=== PATIENT | female | born 2000 | race Caucasian/White ===

== ENCOUNTER 2024-03-23 09:10 | Outpatient (CLI) | payer OTHER, SELFPAY ==
[2024-03-23 18:50] LABS: Cholesterol 157 mg/dL (0-200); HDL Direct 100 mg/dL; Triglycerides 85 mg/dL (<150)
[2024-03-23 19:01] LABS: LDL Cholesterol Direct 44 mg/dL
== END 2024-03-23 09:11 | disposition home or self-care (01) ==
LOC: ANHBWCLAB 09:12
PROVIDERS: PCP Nurse Practitioner Adult Health; Visit Provider Nurse Practitioner Adult Health
DX: Z13.9 Encounter for screening, unspecified (principal)
CPT/HCPCS: 36415; 80061; 84443

== ENCOUNTER 2024-05-26 11:50 | Outpatient (CLI) | payer OTHER, SELFPAY ==
[2024-05-26 19:13] LABS: Add Urine Microscopic? YES; Appearance Urine Turbid (Clear); Bacteria Urine Rare /hpf; Bilirubin Urine Negative (Negative); Blood Urine Negative (Negative); Color Urine Yellow (Yellow); Glucose Urine UA Negative (Negative); Ketones Urine Negative (Negative); Leukocyte Esterase Ur Trace LEU/UL (Negative); Nitrate Urine Negative (Negative); Non Pathogenic Casts 0-2; Protein Urine 2+ mg/dL (Negative); Specific Grav Ur 1.018 (1.001-1.035); Squamous Epithelial Cell Urine Moderate /hpf (Few); Urobilinogen Urine 0.2 mg/dL (<2.0); WBC Urine 21-50 /hpf (0-3)
== END 2024-05-26 11:51 | disposition home or self-care (01) ==
PROVIDERS: PCP Nurse Practitioner Adult Health; Visit Provider Nurse Practitioner Adult Health
DX: R39.9 Unspecified symptoms and signs involving the genitourinary system (principal)
CPT/HCPCS: 81001; 87086

== ENCOUNTER 2024-06-11 11:17 | Outpatient (CLI) | payer OTHER, SELFPAY ==
[2024-06-11 12:01] LABS: Beta HCG Quantitative < 2.39 mIU/ML
== END 2024-06-11 11:18 | disposition home or self-care (01) ==
LOC: ANHLAB 11:19
PROVIDERS: PCP Nurse Practitioner Adult Health; Visit Provider Obstetrics & Gynecology
DX: Z30.430 Encounter for insertion of intrauterine contraceptive device (principal)
CPT/HCPCS: 36415; 84702